=== PATIENT | female | born 1950 | race Caucasian/White ===

== ENCOUNTER → 2016-05-26 | Outpatient (CLI) | payer OTHER ==
[2016-05-26 12:48] LABS: HEMOGLOBIN 14.3 g/dL (12.0-16.0); MEAN CORPUSCULAR HEMOGLOBIN 32.3 PG (27-31); MEAN PLATELET VOLUME 9.6 FL (7.4-12.2); RED BLOOD COUNT 4.43 10^6/uL (4.20-5.40)
[2016-05-26 12:50] LABS: ASPARTATE AMINO TRANSFERASE 33 IU/L (8-39); BILIRUBIN,TOTAL 0.5 mg/dL (0.3-1.2); BLOOD UREA NITROGEN 20 mg/dL (7-22); BUN/CREATININE RATIO 33.33 (6-20); CALCIUM 10.3 mg/dL (8.7-10.7); CHLORIDE 100 meq/L (98-112); CREATININE 0.6 mg/dL (0.50-1.20); EST GLOMERULAR FILTRATION > 60 (>60 ml/min/1.73m(2)); GLUCOSE 107 mg/dL (78-110); HDL CHOLESTEROL 68 mg/dL (40-150); HEMATOCRIT 41.9 % (37.0-47.0); MEAN CORPUSCULAR HGB CONC 34.1 g/dL (33-37); POTASSIUM 4.2 meq/L (3.8-5.2); SODIUM 138 meq/L (135-145); TOTAL PROTEIN 7.7 g/dL (6.1-8.0); TRIGLYCERIDES 230 mg/dL (44-200); WHITE BLOOD COUNT 5.56 10^3/uL (4.8-10.8)
[2016-05-26 13:53] LABS: HEMOGLOBIN A1C 6.05 % (4.2-6.0); MEAN BLOOD GLUCOSE (CALC) 115.465 mg/dL
== END ==
LOC: LAB 09:24
PROVIDERS: ATTEND Physician Assistant
DX: I10 Essential (primary) hypertension (principal); E66.9 Obesity, unspecified; K76.0 Fatty (change of) liver, not elsewhere classified; E78.5 Hyperlipidemia, unspecified; E03.9 Hypothyroidism, unspecified; R73.01 Impaired fasting glucose
CPT/HCPCS: 80053; 80061; 82306; 83036; 84443; 85027

== ENCOUNTER → 2016-07-27 | Outpatient (CLI) | payer OTHER ==
[2016-07-27 17:37] LABS: BASOPHILS # (AUTO) 0.06 10*3/UL; BASOPHILS % (AUTO) 0.8 % (0-1); EOSINOPHILS # (AUTO) 0.16 10*3/UL; EOSINOPHILS % (AUTO) 2.1 % (0-8); HEMATOCRIT 43.2 % (37.0-47.0); HEMOGLOBIN 14.2 g/dL (12.0-16.0); LYMPHOCYTES # (AUTO) 2.88 10*3/uL; MEAN CORPUSCULAR HEMOGLOBIN 31.8 PG (27-31); MEAN CORPUSCULAR HGB CONC 32.9 g/dL (33-37); MEAN CORPUSCULAR VOLUME 96.6 FL (81-99); MEAN PLATELET VOLUME 9.7 FL (7.4-12.2); MONOCYTES # (AUTO) 0.82 10*3/UL (0.3-0.8); MONOCYTES % (AUTO) 10.7 % (5-15); NEUTROPHILS # (AUTO) 3.75 10*3/UL; NEUTROPHILS % (AUTO) 48.8 % (50-80); RED BLOOD COUNT 4.47 10^6/uL (4.20-5.40)
[2016-07-27 17:42] LABS: SERUM ALBUMIN 4.4 g/dL (3.5-4.8)
[2016-07-27 17:46] LABS: PLATELET MORPHOLOGY COMMENT NORMAL MORPHOLOGY (NORM); RBC MORPHOLOGY COMMENT NORMAL MORPHOLOGY (NORM); WBC MORPHOLOGY COMMENT NORMAL MORPHOLOGY (NORM)
[2016-07-27 18:12] LABS: BILIRUBIN,URINE NEGATIVE (NEG); CLARITY,URINE CLEAR (CLEAR); COLOR,URINE YELLOW; GLUCOSE, URINE (UA) NEGATIVE (NEG); NITRATE,URINE NEGATIVE (NEG); OCCULT BLOOD,URINE NEGATIVE (NEG); PROTEIN,URINE NEGATIVE (NEG); URINE SAMPLE TYPE CLEAN CATCH URINE; UROBILINOGEN,URINE 0.2 mg/dL (0.2); WBC,URINE 0-1
[2016-07-27 18:13] LABS: BACTERIA,URINE RARE; SQUAMOUS EPITHELIAL CELL,UR RARE
== END ==
LOC: LAB 11:08
DX: M17.12 Unilateral primary osteoarthritis, left knee (principal); Z01.818 Encounter for other preprocedural examination
CPT/HCPCS: 36415; 80053; 81001; 85025; 87641

== ENCOUNTER 2018-05-08 05:39 | Inpatient (IN) ==
[2018-05-08] MEDS ORDERED: Lactated Ringers 1,000 ML PRIMARY IV ONE ×3 (05:54→15:47)
[2018-05-08] MEDS ORDERED: ceFAZolin Inj 2gm (Premix) 2 GM/50 ML BAG IV ONE ×2 (05:54→06:00)
[2018-05-08] MEDS ORDERED: LIDOCAINE W/ SODIUM BICARB 0.5 ML SYR ONE (05:55)
[2018-05-08] MEDS ORDERED: Sodium Chloride 0.9% 250 ML ONE (05:55)
[2018-05-08] MEDS ORDERED: LIDOCAINE W/ SODIUM BICARB 0.5 ML SYR SUBD ONE (06:00)
[2018-05-08] MEDS ORDERED: Nasal Sanitizer POPSWAB ampule 3 AMP (Nozin) PREOP DOSE ENOS SCH (06:00)
[2018-05-08 06:12] LABS: BILIRUBIN,URINE NEGATIVE (NEG); CLARITY,URINE CLEAR (CLEAR); COLOR,URINE YELLOW; GLUCOSE, URINE (UA) NEGATIVE (NEG); OCCULT BLOOD,URINE NEGATIVE (NEG); PH,URINE 6.5 (5.0-8.5); PROTEIN,URINE NEGATIVE (NEG); UROBILINOGEN,URINE 0.2 mg/dL (0.2)
[2018-05-08 06:14] LABS: RBC,URINE 0 /hpf; SQUAMOUS EPITHELIAL CELL,UR FEW; URINE SAMPLE TYPE CLEAN CATCH URINE; WBC,URINE 0-2
[2018-05-08] MEDS ORDERED: IPRATROPIUM/ALBUTEROL SULFATE 3 ML NEB NEB ONE ×2 (06:39→06:54)
[2018-05-08] MEDS ORDERED: fentaNYL Inj 250 MCG/5 ML VIAL ONE (06:40)
[2018-05-08] MEDS ORDERED: MIDAZOLAM 5 MG/1 ML ONE (06:40)
[2018-05-08] MEDS ORDERED: ATROPINE SULFATE 0.4 MG/1 ML VIAL IVP PRN (06:41)
[2018-05-08] MEDS ORDERED: LIDOCAINE W/ SODIUM BICARB 0.5 ML SYR SUBD PRN (06:41)
[2018-05-08] MEDS ORDERED: fentaNYL Inj 100 MCG/2 ML VIAL IVP PRN (06:41)
[2018-05-08] MEDS ORDERED: ONDANSETRON 4 MG/2 ML VIAL IVP PRN ×2 (06:41→16:26)
[2018-05-08] MEDS ORDERED: Ondansetron ODT Tab 8 MG TAB PO PRN (06:41)
[2018-05-08] MEDS ORDERED: KETAMINE 100 MG/1 ML - 5 ML ONE ×2 (06:42→15:57)
[2018-05-08] MEDS ORDERED: Acetaminophen 1000mg Inj 1,000 MG/100 ML VIAL IV ONE (06:43)
--- NOTE | 2018-05-08 06:44 | CRNA.PROGR ---
Anesthesia Time - Procedure/Recovery Time Start Date: 05/08/18 End Date: 05/08/18 Anesthesia : Time In: 07:48 Anesthesia : Time Out: 15:19 Anesthesia : Total Time: 451 - Total Anesthesia Time Total Anesthesia Time (minutes): 451 - Other Weight: 104.326 kg Height: 5 ft Body Mass Index (BMI): 44.9 Physical Status: P2 Anesthesia Type: General Anesthesia : ET
--- NOTE | 2018-05-08 06:44 | CRNA.PROGR ---
Anesthesia Recovery Phase I - Post Anesthesia Evaluation Patient's Condition on Arrival in Phase I: Stable Patient's Condition on Arrival in Phase II: Stable (medicated for pain with Hydromorphone, Ketoralac, Ketamine. Subjectively she states pain is severe, yet appears to be able to rest.) Pain Level: 10
--- NOTE | 2018-05-08 06:44 | CRNA.PROGR ---
Post Anesthesia Phase II - Post Anesthesia Phase II Patient Stable and Discharged To: Med/Surg Care Assumed By Surgeon: Wu Bailey MD Temperature: 98.2 F Pulse Rate: 89 Respiratory Rate: 22 Pulse Ox: 93 Total Kimberly Score at Discharge: 9 Post Anesthesia Discharge Criteria Met: Yes Additional Details: Aggressive pain medication.
[2018-05-08] MEDS ORDERED: Lactated Ringers 1,000 ML PRIMARY IV SCH (06:45)
[2018-05-08] MEDS ORDERED: Sodium Chloride 0.9% vial 40 ML ONE (06:47)
[2018-05-08] MEDS ORDERED: BACITRACIN 50,000 UNIT VIAL IRRIG ONE (06:47)
[2018-05-08] MEDS ORDERED: REMIFENTANIL 1 MG/1 ML IV ONE ×2 (07:00→11:19)
[2018-05-08] MEDS ORDERED: REMIFENTANIL HCL 2 MG VIAL IV ONE ×2 (07:00→11:19)
[2018-05-08] MEDS: Lactated Ringers 1,000 ML PRIMARY IV ONE ×2 (07:04→15:40)
[2018-05-08] MEDS ORDERED: Gentamicin Inj 40 MG/ML VIAL ONE (07:08)
[2018-05-08] MEDS ORDERED: Vancomycin Inj 1gm vial ONE (07:08)
[2018-05-08] MEDS ORDERED: ROCURONIUM 10 MG/1 ML - 5 ML VIAL IVP ONE (07:10)
[2018-05-08] MEDS ORDERED: DEXAMETHASONE PF 10 MG/1 ML VIAL ONE (07:20)
[2018-05-08] MEDS ORDERED: BUPIVACAINE 0.25% W/ EPI - 10 ML VIAL ONE (08:29)
[2018-05-08] MEDS ORDERED: GLYCOPYRROLATE 0.2 MG/1 ML VIAL ONE (08:30)
[2018-05-08] MEDS ORDERED: Hetastarch 6% + NS 500 ML IV ONE (09:03)
[2018-05-08] MEDS ORDERED: BUPivacaine Liposome/PF (Exparel) Inj 20ml vial INFIL ONE ×2 (09:37→14:44)
[2018-05-08] MEDS ORDERED: PROPOFOL 10 MG/1 ML (200 MG/20 ML) VIAL IV ONE (11:31)
[2018-05-08] MEDS ORDERED: Propofol 1,000 MG/100 ML VIAL IV ONE ×2 (12:33→13:26)
[2018-05-08] MEDS ORDERED: Sodium Chloride 0.9% vial 10 ML ONE (12:58)
[2018-05-08] MEDS ORDERED: Lactated Ringers 2,000 ML PRIMARY IV ONE (13:12)
[2018-05-08] MEDS ORDERED: BUPivacaine Inj 0.25% PF - 10ml vial ONE (14:45)
[2018-05-08] MEDS: HYDROmorphone 2 MG/1 ML IVP PRN ×4 (15:28→15:43)
[2018-05-08] MEDS ORDERED: HYDROmorphone 2 MG/1 ML ONE ×2 (15:32→15:45)
[2018-05-08] MEDS ORDERED: KETOROLAC 30 MG/1 ML VIAL ONE (16:03)
[2018-05-08] MEDS ORDERED: Ondansetron ODT Tab 4 MG TAB PO PRN (16:26)
[2018-05-08] MEDS ORDERED: BISACODYL 5 MG TABLET PO PRN (16:26)
[2018-05-08] MEDS ORDERED: DOCUSATE 100 MG CAPSULE PO PRN (16:26)
[2018-05-08] MEDS ORDERED: HYDROcodone-APAP 7.5 MG-325 MG TABLET PO PRN (16:26)
[2018-05-08] MEDS ORDERED: Vancomycin-PHA to Dose IV SCH (16:26)
[2018-05-08] MEDS ORDERED: Prochlorperazine Edisylate Inj 10mg/2ml vial IVP PRN (16:26)
[2018-05-08] MEDS ORDERED: HYDROcodone-APAP 10 MG-325 MG TABLET PO PRN (16:26)
[2018-05-08] MEDS ORDERED: Fleet Enema 133ml RECTAL PRN (16:26)
[2018-05-08] MEDS ORDERED: oxyCODONE/APAP 7.5/325 Tab 1 TAB TAB PO PRN (16:26)
[2018-05-08] MEDS ORDERED: oxyCODONE/APAP 10/325 Tab 1 EACH TAB PO PRN (16:26)
[2018-05-08] MEDS ORDERED: MAGNESIUM CITRATE 296 ML SOLUTION PO PRN (16:26)
[2018-05-08] MEDS ORDERED: FLUTICASONE PROPIONATE SCH (16:26)
[2018-05-08] MEDS ORDERED: DIAZEPAM 5 MG TABLET PO PRN (16:26)
[2018-05-08] MEDS ORDERED: MAGNESIUM 400 MG/5 ML - 30 ML (MILK OF MAGNESIA) PO PRN (16:26)
[2018-05-08] MEDS ORDERED: oxyCODONE-ACETAMINOPHEN 5-325 TAB PO PRN (16:26)
[2018-05-08] MEDS ORDERED: PROMETHAZINE 25 MG/1 ML VIAL IM PRN (16:26)
[2018-05-08] MEDS: MORPHINE SULFATE 2 MG/1 ML IVP PRN ×2 (17:11→22:03)
--- NOTE | 2018-05-08 18:51 | CONSULT ---
Consult Note - Consult Consult Date: 05/08/18 Reason for Consult: Other Requesting Physician: Dr. Bailey Primary Care Provider: Yassine Jernigan DNP - History of Present Illness History of Present Illness: This is a 68 years old female with medical history significant for history of insulin resistant on metformin, hypothyroidism, GERD, history of irritable bowel syndrome and history of chronic back pain for which she came in to have surgery and was done by Dr. Bailey today. The patient was seen postoperatively for management of medical issues. The Patient herself is denying symptoms. Pain seemed to be controlled. No nausea, no shortness of breath, no chest pain. Her main complaint is dry mouth. She said she has problem with oral pain medication she would get nausea and vomiting. Past Medical History Medical History: 1. Hypothyroidism. 2. Obstructive sleep apnea on CPAP. 3. History of Insulin resistance on metformin. 4. Obesity. 5. GERD. 6. Hyperlipidemia. 7. Irritable bowel syndrome Surgical History: 1. History of back surgery. 2. History of carpal tunnel surgery. 3. History of total knee replacement. 4. History of gastric banding surgery. 5. History of hernia surgery Family History: Reviewed an Not Pertinent Past Social History: Does not smoke, occasionally and drink lives in [place] with her . Occasionally she said she was a walker. Tobacco Use: Former Smoker Do you dip or chew tobacco: No In the Past 12 Months, Have Used or Abuse Any of the Following Substance: None Alcohol Use: Occasionally Review of Systems - Review of Systems All Systems: Reviewed & No Additional Complaints Except as Stated Medication / Allergies Home Medications: Home Medications Medication Instructions Recorded Confirmed Type Psyllium Husk [Fiber] 0.52 gm PO QD cap 07/28/16 05/08/18 History Vitamin B Complex 1 ea PO QD cap 07/28/16 05/08/18 History conj estrogen-medroxyprogesterone 1 tab PO QDAY #28 tab 10/22/17 05/08/18 Rx 0.3 mg-1.5 mg tablet gcxixon-abftlerpdumgb-suviguwq 250 2 tab PO Q6H PRN 01/23/18 05/08/18 History mg-250 mg-65 mg tablet esomeprazole magnesium 40 mg 40 mg PO QDAY #90 cap 01/23/18 05/08/18 Rx capsule,delayed release Synthroid 150 mcg tablet 150 mcg PO QDAY #90 tab NS 03/04/18 05/08/18 Rx metformin 1,000 mg tablet 500 mg PO BID #90 tab 03/27/18 05/08/18 Rx fenofibrate micronized 134 mg 134 mg PO QDAY #90 cap 04/09/18 05/08/18 Rx capsule fluticasone 50 mcg/actuation nasal See Rx Instructions .ROUTE 05/01/18 05/08/18 Rx spray,suspension .COMPLEX #16 gram eluxadoline 100 mg tablet 100 mg PO BID #120 tab 05/06/18 05/08/18 Rx Tapentadol HCl [Nucynta] 50 mg PO Q3H PRN PRN #24 tab 05/09/18 Rx Allergies/Adverse Reactions: Allergies Allergy/AdvReac Type Severity Reaction Status Date / Time adhesive Allergy Severe RASH Verified 05/09/18 06:19 nabumetone Allergy Severe Itching/hiv Verified 05/09/18 06:19 es sulfasalazine Allergy Severe Anaphylaxis Verified 05/09/18 06:19 Exam - Vitals Vital Signs: Vital Signs Temperature 97.5 F Temperature Source Oral Pulse Rate 112 Respiratory Rate 12 Blood Pressure 162/93 Pulse Ox 91 Oxygen Flow Rate 4 Oxygen Delivery Method Nasal Cannula Height 5 ft Weight 230 lb - General General Appearance: No Acute Distress, Cooperative - Head Head Exam: Normal Inspection - ENT ENT Exam: POSITIVE: Normal Exam - Neck Neck Exam: Normal Inspection - Respiratory Respiratory Exam: POSITIVE: Clear to Auscultation - Bilaterally - Cardiovascular Cardiovascular Exam: POSITIVE: RRR - GI/Abdominal GI/Abdominal Exam: POSITIVE: Normal Bowel Sounds, Non Tender, Non Distended, Soft, No Organomegaly - Rectal Rectal Exam: POSITIVE: Deferred - External Exam: POSITIVE: Deferred - Extremities Extremities Exam: POSITIVE: Normal Inspection Additional Extremities Exam Details: SCD boots applied - Neurological Neurological Exam: POSITIVE: Alert, Oriented x 3, CN II-XII Intact, No Facial Droop, Speech Intact / Clear - Psychiatric Psychiatric Exam: POSITIVE: Normal Affect - Integumentary Integumentary Exam: POSITIVE: Normal Color Results - Labs CBC and BMP: 05/09/18 04:15 05/09/18 04:15 Assessment and Plan - Patient Problems (1) Back pain Current Visit: Yes Status: Acute Comment: Status post surgery management per by Dr. Bailey. He wrote for pain medication. She said she has side effect from the oral pain medication. I did write for Tylenol as needed for pain. Otherwise she has IV morphine. sHe said that would work for her. Code(s): M54.9 - Dorsalgia, unspecified (2) Irritable bowel syndrome with diarrhea Current Visit: No Status: Chronic Comment: Same med Code(s): K58.0 - Irritable bowel syndrome with diarrhea (3) Insulin resistance Current Visit: No Status: Chronic Comment: She is on metformin from the outpatient continue. Code(s): E88.81 - Metabolic syndrome (4) Hypothyroidism Current Visit: No Status: Chronic Comment: Same medication Qualifiers: Hypothyroidism type: acquired Qualified Code(s): E03.9 - Hypothyroidism, unspecified
[2018-05-08] MEDS: ceFAZolin Inj 1 GM in Sodium Chloride 0.9% 100 ML IV SCH (19:14)
[2018-05-08] MEDS: metFORMIN 500 MG TABLET PO SCH (19:59)
--- NOTE | 2018-05-08 20:08 | NEURO.PROG ---
Subjective Post Op Day: 0 Pain Management: IV Sotelo Catheter: Yes Diet: Regular Ambulating: Yes Additional Details: Awake and alert. Lying comfortably in floor bed. Back pain more controlled now then when seen in PACU. Continues to deny leg symptoms as she did in the PACU. Moving all extremities well. Good/full knee flexion/dorsiflexion/plantarflexion bilaterally. PLAN: 1.) Continue post-operative antibiotics. 2.) Continue post-operative pain control. 3.) Advance diet. 4.) Fit for brace. 5.) Mobilize. Objective : Data - Vital Signs Vital Signs and I&O: Vital Signs - Last Taken Temperature 97.5 F 05/08/18 17:00 Pulse Rate 112 H 05/08/18 16:02 Respiratory Rate 12 05/08/18 17:00 Blood Pressure 162/93 05/08/18 16:02 Pulse Ox 91 05/08/18 16:02 Intake and Output (24hr x 4 totals) 05/06/18 05/07/18 05/08/18 05/09/18 05:59 05:59 05:59 05:59 Intake Total 4100 / 4100 Output Total 568 / 568 Balance 3532 / 3532
[2018-05-08] MEDS ORDERED: ELUXADOLINE 100 MG PO SCH (21:00)
[2018-05-08] MEDS: ACETAMINOPHEN 325 MG TABLET PO PRN (22:04)
[2018-05-09] MEDS: MORPHINE SULFATE 2 MG/1 ML IVP PRN ×5 (01:38→17:32)
[2018-05-09] MEDS: ceFAZolin Inj 1 GM in Sodium Chloride 0.9% 100 ML IV SCH (04:04)
[2018-05-09] MEDS: ACETAMINOPHEN 325 MG TABLET PO PRN ×3 (04:24→20:56)
[2018-05-09] MEDS: LEVOTHYROXINE 75 MCG TABLET PO SCH (05:23)
[2018-05-09 05:54] LABS: BASOPHILS # (AUTO) 0.01 10*3/UL; BASOPHILS % (AUTO) 0.1 % (0-1); EOSINOPHILS # (AUTO) 0 10*3/UL; EOSINOPHILS % (AUTO) 0 % (0-8); Hematocrit [HCT] 35.3 % (37.0-47.0); LYMPHOCYTES # (AUTO) 1.33 10*3/uL; MEAN CORPUSCULAR HEMOGLOBIN 32.3 PG (27-31); MEAN CORPUSCULAR VOLUME 95.1 FL (81-99); MEAN PLATELET VOLUME 9.7 FL (7.4-12.2); MONOCYTES # (AUTO) 0.91 10*3/UL (0.3-0.8); MONOCYTES % (AUTO) 9.9 % (5-15); NEUTROPHILS # (AUTO) 6.95 10*3/UL; NEUTROPHILS % (AUTO) 75.4 % (50-80); RED BLOOD COUNT 3.71 10^6/uL (4.20-5.40)
[2018-05-09 05:59] LABS: PLATELET MORPHOLOGY COMMENT NORMAL MORPHOLOGY (NORM); RBC MORPHOLOGY COMMENT NORMAL MORPHOLOGY (NORM); WBC MORPHOLOGY COMMENT NORMAL MORPHOLOGY (NORM)
[2018-05-09 06:06] LABS: BLOOD UREA NITROGEN 14 mg/dL (7-22)
--- NOTE | 2018-05-09 06:28 | NEURO.PROG ---
Subjective Post Op Day: 1 Pain Management: PO Bird Catheter: Yes Flatus: Yes Diet: Regular Ambulating: No Additional Details: I made rounds with Dr. Bailey on [facility] this morning. She is awake and alert, with some complaints of back pain, but denies peripheral symptoms. Her knee flexion, dorsi and plantar flexion are strong. Her pain was managed with tylenol and IV morphine last night since she does not tolerate oxy or hydrocodone. We will work with getting her on an oral pain medication she can tolerate. Her incision is dry and intact and her drain output totals 100ml since surgery, with 40ml of that for the last 12 hours. Plan for today is to mobilize her today and to discontinue her wound drain and her bird catheter. Objective : Data - Labs CBC and BMP: 05/09/18 04:15 05/09/18 04:15 - Vital Signs Vital Signs and I&O: Vital Signs - Last Taken Temperature 97.2 F 05/09/18 04:15 Pulse Rate 116 H 05/09/18 04:15 Respiratory Rate 20 05/09/18 04:15 Blood Pressure 141/77 05/09/18 04:15 Pulse Ox 95 05/09/18 04:15 Intake and Output (24hr x 4 totals) 05/07/18 05/08/18 05/09/18 05/10/18 05:59 05:59 05:59 05:59 Intake Total 6754 / 6754 Output Total 2108 / 2108 Balance 4646 / 4646
[2018-05-09] MEDS ORDERED: PANTOPRAZOLE 40 MG TABLET PO SCH (07:00)
[2018-05-09] MEDS: Esomeprazole DR 20mg Capsule PO SCH (07:33)
[2018-05-09] MEDS ORDERED: TAPENTADOL 50 MG PO PRN (08:47)
[2018-05-09] MEDS ORDERED: ESTROGEN CON PO SCH ×2 (09:00→19:13)
[2018-05-09] MEDS ORDERED: M PROGEST ACET PO SCH ×2 (09:00→19:13)
[2018-05-09] MEDS: FENOFIBRATE 145 MG TABLET PO SCH (09:58)
[2018-05-09] MEDS: metFORMIN 500 MG TABLET PO SCH ×2 (09:58→20:09)
--- NOTE | 2018-05-09 11:17 | PTI REPORT ---
Thank you for the referral of Heidi Rocha. She was seen on 05/09/18 for an inpatient evaluation status post lumbar fusion. SUBJECTIVE: The patient is a 68-year-old female who underwent a lumbar fusion yesterday. The patient is complaining of a pain level of 8/10 on the verbal analog scale (0=no pain, 10=worst pain) upon the therapist's arrival. The patient did receive intravenous Morphine just prior to physical therapy. The patient reports that last year she underwent a surgery for a nerve release for her back and did not have much change in her back pain as she states she has had a chronic history of back pain, but denies any other back surgeries besides her nerve release. The patient states that she lives in [place] with her . She states that she has three stairs into her home and everything she needs to access in her home is on one level. The patient states that she has been having left lower extremity weakness prior to her surgery. She states that she has some numbness in her heel and also underwent a left total knee replacement a couple of years ago. The patient states that prior to her back surgery she was not having any numbness or tingling into her lower extremities. The patient states a history of three previous knee surgeries including a right and left total knee replacements and a history of multiple shoulder surgeries. The patient states that she uses a single point cane at times for ambulation as needed and denies any falls over the past three months. The patient states that she does have a bariatric walker that her will be bringing in later for her to use as she feels that she will be more safe with this and this is something that she used after her total knee replacements. The patient states that she was doing fairly well with her ADLs prior to surgery but was needing some assistance with some of her dressing and also with meals. PAST MEDICAL HISTORY: Past medical history can be found in the patient's medical record. OBJECTIVE FINDINGS: General observations: The patient was alert and oriented to setting upon PT arrival. The patient was sitting up in chair and did have her back brace in place. We reviewed lumbar precautions including no bending/lifting/twisting. The therapist demonstrated to patient how to properly log roll into and out of bed. We discussed being up and walking for gentle nerve glides along with wearing brace whenever the patient is up and moving. Pain: The patient reported a pain level of 8/10 on the verbal analog scale (0=no pain, 10=worst pain). Transfers: The patient was able to perform a sit to stand transfer with min assist x1. The patient demonstrated fair initial standing balance. The patient was able to perform a stand to seated transfer with stand by assist x1 for safety. Ambulation: The patient utilized walker and contact guard assist x1 to ambulate from her chair to the bed, approximately 10 feet. Once we were standing in front of the bed, the patient was able to side step 5 feet to move up toward the head of the bed. Bed mobility: The patient required mod assist x1 in order to properly log roll into bed in order to help lift up her lower extremities. The patient does state that at home she has a taller bed. We will need to figure out a way for her to get in and out of her bed at home safely. ASSESSMENT: The patient has fair rehab potential secondary to her age and multiple prior histories along with her current pain level. Problem List: Patient is status post lumbar fusion Back pain Difficulties with transfers and ambulation Decreased functional mobility Short-Term Goals: To be met by discharge from inpatient: Patient will be familiar with and able to verbalize lumbar precautions. Patient will be able to perform a log roll into and out of bed with modified independence. Patient will be able to don and doff her brace with modified independence. Patient will be able to ambulate at least 100 feet with walker safely and independently. Patient will be able to ascend and descend at least three stairs with walker safely and independently. Long-Term Goals: To be met following discharge from inpatient: Patient may be seen by outpatient physical therapy if deemed necessary by surgeon. TREATMENT PLAN: Patient will be seen B.I.D during the week and one time per day over the weekend as an inpatient to address the above goals and objectives. INITIAL TREATMENT: Treatment today consisted of the initial evaluation. Following treatment the patient was left in bed with bed alarm on and call light within reach. [facility] CENTERAbelino
--- NOTE | 2018-05-09 11:37 | OTI REPORT ---
Thank you for the referral of Heidi Rocha. She was seen on 05/09/18 for an occupational therapy inpatient evaluation status post lumbar fusion. SUBJECTIVE: The patient is a 68-year-old female from [place], [place] who had a lumbar fusion on 05/08/2018. The patient reports that at prior level of function she was having a lot of back pain and was not able to exercise since October of last year. She did not use an assistive device to ambulate around her home. The patient reports minimal leg pain and she does not report any numbness or tingling at prior level of function or post op. The patient does report that she has had bilateral total knee arthroplasties, with the last one being on the left side. She also has left sided heel numbness. At prior level of function, the patient was independent with ADLs; however, on occasion she did need assistance to put on her socks and to don her bra due to back pain. Other than that, she was independent with ADLs including showering, donning pants, and walking. She did require some assistance with cooking tasks at home. The patient does live with her spouse. The patient reports she has three stairs to the entrance of her home with a hand rail on one side. Her bathroom set up includes a tub/shower combo with a grab bar. She does not have a shower chair in there at this time. The patient has a history of other orthopedic issues to include bilateral total knees and four shoulder surgeries. This is her first lumbar fusion; however, she did have a nerve release earlier last year in 2018. Currently the patient reports a pain level of 8/10 on the verbal analog scale (0=no pain, 10=worst pain) sitting upright in the recliner chair. Nursing did give patient Morphine related to the pain. PAST MEDICAL HISTORY: Past medical history can be found in the patient's medical record. OBJECTIVE FINDINGS: General observations: The patient was sitting upright in chair with her back brace in place upon the therapist's arrival. Her feet were slightly elevated. The patient was educated in precautions to include no bending/lifting/twisting and use of the back brace. Activities of daily living: The patient was briefly educated on adaptive equipment including a long handled bath sponge, a flatwork feeder, and a sock aide to assist with dressing tasks once the patient is feeling better. Upper extremity and lower extremity dressing was not completed at this time due to the patient's high pain level. Pain: The patient reported a pain level of 8/10 on the verbal analog scale (0=no pain, 10=worst pain). She did report that she wanted to get back into bed. Transfers: The patient demonstrated the ability to stand from her recliner chair with minimal assistance. She did use a standard walker at the time of the evaluation; however, her is bringing one from home that she feels is safer and sturdier. Ambulation: The patient demonstrated the ability to ambulate 5 feet to edge of bed. Bed mobility: The patient sat edge of bed and required moderate assistance to perform log rolling techniques to get into bed. The patient was able to reposition self slightly in bed without assistance. ASSESSMENT: Rehab potential is fair to good. Problem List: Decreased ability to complete lower extremity dressing Decreased ability to complete functional transfers/log rolling Decreased safety awareness Decreased standing activity tolerance/balance Short-Term Goals: To be met by discharge from inpatient: Patient will demonstrate the ability to complete lower extremity dressing techniques while following back precautions with the use of a back brace and assistive devices as needed with modified independence to include donning/doffing pants, underwear, and socks. Patient will demonstrate the ability to complete upper extremity dressing independently to include donning/doffing of back brace. Patient will demonstrate the ability to complete functional transfers from the toilet and chair with contact guard assist only for safety without verbal cues. Patient will demonstrate the ability to stand for 5-8 minutes with no losses of balance to complete standing grooming tasks prior to discharge to home. Long-Term Goals: To be met following discharge from inpatient: Patient will return home to [place] and may be seen by outpatient physical therapy to continue with her recovery process. TREATMENT PLAN: Patient will be seen B.I.D during the week and one time per day over the weekend as an inpatient to address the above goals and objectives. INITIAL TREATMENT: Treatment today consisted of the initial evaluation only. Following treatment the patient was left in bed with call light within place and bed alarm set. She did report that she is hoping to get up and start walking a little bit more later this afternoon and may feel like getting dressed later. RIO
--- NOTE | 2018-05-09 11:38 | PDOC(PROG) ---
Date of Service: 05/09/18 Time of Service: 11:30 Interval History: Subjective Patient complain pain from back pain but otherwise denying other symptoms. No nausea. No shortness of breath. Objective : Data - Labs CBC and BMP: 05/09/18 04:15 05/09/18 04:15 Objective : Exam - General General Appearance: No Acute Distress, Cooperative, Morbidly Obese - Head Head Exam: Normal Inspection - Eye Eye Exam: Normal Appearance - ENT ENT Exam: Normal Exam - Neck Neck Exam: Normal Inspection - Respiratory Respiratory Exam: Clear to Auscultation - Bilaterally - Cardiovascular Cardiovascular Exam: RRR - GI/Abdominal GI/Abdominal Exam: Normal Bowel Sounds, Non Tender, Non Distended, Soft, No Organomegaly - Rectal Rectal Exam: Deferred - External Exam: Deferred Exam: Deferred - Extremities Extremities Exam: Normal Inspection - Back Additional Back Exam Details: She is wearing a brace. - Neurological Neurological Exam: Alert, Oriented x 3, CN II-XII Intact, No Facial Droop, Speech Intact / Clear, Moves All Extremities Equally - Psychiatric Psychiatric Exam: Normal Affect Assessment and Plan - Patient Problems (1) Back pain Current Visit: Yes Status: Acute Comment: She status post surgery day 1. For oral pain medication they wrote for Nucynta and she said she usually do okay with it but takes the edge of the pain only. Continue Tylenol she has IV morphine as needed. IV fluid was DC'd, Sotelo was taking out. Code(s): M54.9 - Dorsalgia, unspecified (2) Insulin resistance Current Visit: No Status: Chronic Comment: Same med Code(s): E88.81 - Metabolic syndrome (3) Hypothyroidism Current Visit: No Status: Chronic Comment: Same meds Qualifiers: Hypothyroidism type: acquired Qualified Code(s): E03.9 - Hypothyroidism, unspecified
--- NOTE | 2018-05-09 15:59 | PT.PROG ---
Progress Note Progress Note: S. Patient stated that she is in a lot of pain this afternoon and she is very tired. O. Patient ambulated 50 feet in the rodriguez and back to her room where she was left in bed with alarm and call light. A. Patient tolerated ambulation fair, she required mod assist with ambulation. She would continue to benefit from skilled therapy to increase strength and mobility at this time. P. Continue POC.
[2018-05-09] MEDS: TAPENTADOL 50 MG PO PRN ×3 (16:19→23:11)
--- NOTE | 2018-05-09 16:27 | OT.PROG ---
Progress Note Progress Note: Occupational Therapy S: Pt. reports that she is in 6/10 pain and is very tired this afternoon. She did agreed to get up with therapies. O: Pt. was lying supine in bed upon arrival. Pt. demonstrated the ability to move from supine to side lying independently and perform a log rolling technique with moderate assistance and moderate verbal cueing. Pt. was able to maintain sitting upright EOB X 5 minutes. Pt. then attempted log rolling back into bed with max verbal cues. Pt. required max A to lift legs and she did not maintain a side lying position during log rolling. Following session pt. was left in bed with call light and alarms in place. A: Pt. struggled with bed mobility tasks today as well as following log rolling precautions. Pt. continues to benefit from skilled therapy to increase safety, strength, functional mobility, and ADL performance. P: Continue POC. DELILAH [place]
--- NOTE | 2018-05-09 21:52 | EKG ---
[address] [address] Measurements Intervals [facility] Rate: 118 P: 73 MD: 155 QRS: 62 QRSD: 103 T: 43 QT: 340 QTc: 410 Interpretive Statements SINUS TACHYCARDIA ABNORMAL RHYTHM ECG No previous ECG available for comparison Electronically Signed On 05-10-18 11:23:43 MST by Gilberto Muir MD [email or web address]
--- NOTE | 2018-05-09 21:56 | DI ---
EXAM: XR Chest, 1 View CLINICAL HISTORY: ITS.REASON hypoxia Physician Notes: Tech Comments: TECHNIQUE: Frontal view of the chest. COMPARISON: No relevant prior studies available. FINDINGS: Lungs: Mild interstitial thickening. Mild silhouetting of the medial right hemidiaphragm suggesting lower lobe airspace disease Pleural space: No significant pleural effusion. No visualized pneumothorax. Heart: Cardiac silhouette size is upper limits normal. Mediastinum: Mild atherosclerosis in the aortic arch.. Bones/joints: Surgical changes to the humeral heads. Vasculature: Mild pulmonary venous prominence. IMPRESSION: 1. Cardiomegaly with mild pulmonary venous prominence and interstitial thickening. Component of edema or other infiltrate not excluded. 2. Mild silhouetting of the heel right hemidiaphragm suggests air space disease versus atelectasis in the right lower lobe.
[2018-05-09] MEDS ORDERED: Sodium Chloride 0.9% 250 ML IV ONE (22:01)
[2018-05-09] MEDS: Ertapenem Inj 1 GM in Sodium Chloride 0.9% 100 ML IV SCH (23:11)
[2018-05-09 23:24] LABS: BILIRUBIN,URINE NEGATIVE (NEG); CLARITY,URINE CLEAR (CLEAR); COLOR,URINE YELLOW (Y); GLUCOSE, URINE (UA) NEGATIVE (NEG); OCCULT BLOOD,URINE Trace-intact (NEG); PH,URINE 5.5 (5.0-8.5); PROTEIN,URINE NEGATIVE (NEG); UROBILINOGEN,URINE 0.2 EU/dL (0.2)
[2018-05-09 23:27] LABS: SQUAMOUS EPITHELIAL CELL,UR FEW; URINE SAMPLE TYPE CLEAN CATCH URINE
[2018-05-10] MEDS: TAPENTADOL 50 MG PO PRN ×5 (02:41→20:24)
[2018-05-10] MEDS: LEVOTHYROXINE 75 MCG TABLET PO SCH (05:17)
[2018-05-10 06:00] LABS: BASOPHILS # (AUTO) 0.04 10*3/UL; BASOPHILS % (AUTO) 0.4 % (0-1); EOSINOPHILS # (AUTO) 0.27 10*3/UL; Hemoglobin [HGB] 11.3 g/dL (12.0-16.0); LYMPHOCYTES # (AUTO) 1.87 10*3/uL; MEAN CORPUSCULAR HEMOGLOBIN 32.2 PG (27-31); MEAN CORPUSCULAR HGB CONC 33.2 g/dL (33-37); MEAN CORPUSCULAR VOLUME 96.9 FL (81-99); MEAN PLATELET VOLUME 9.1 FL (7.4-12.2); MONOCYTES # (AUTO) 0.78 10*3/UL (0.3-0.8); MONOCYTES % (AUTO) 8.7 % (5-15); NEUTROPHILS # (AUTO) 5.96 10*3/UL; NEUTROPHILS % (AUTO) 66.8 % (50-80); RED BLOOD COUNT 3.51 10^6/uL (4.20-5.40)
[2018-05-10 06:06] LABS: PLATELET MORPHOLOGY COMMENT NORMAL MORPHOLOGY (NORM); RBC MORPHOLOGY COMMENT NORMAL MORPHOLOGY (NORM); WBC MORPHOLOGY COMMENT NORMAL MORPHOLOGY (NORM)
[2018-05-10 06:46] LABS: BLOOD UREA NITROGEN 9 mg/dL (7-22)
--- NOTE | 2018-05-10 06:58 | NEURO.PROG ---
Subjective Post Op Day: 2 Pain Management: PO (Nucenta) Sotelo Catheter: No Flatus: Yes Diet: Regular Ambulating: Yes Additional Details: Awake and alert. No complaints. Feeling fine. Comfortable sitting in bedside chair. Passing some gas, no bowel movement yet. Post-operative pain well controlled on Nucynta. Temp up to 100.8 and tachycardic last evening. EKG - sinus rythym. UA - negative. CXR - atelectasis right lower lobe. PLAN: 1.) Continue incentive spirometer. 2.) Continue to mobilize. 3.) Continue post-operative pain control. Objective : Data - Labs CBC and BMP: 05/10/18 05:55 05/10/18 05:55 - Vital Signs Vital Signs and I&O: Vital Signs - Last Taken Temperature 97.9 F 05/10/18 06:42 Pulse Rate 114 H 05/10/18 06:42 Respiratory Rate 20 05/10/18 06:42 Blood Pressure 140/82 05/10/18 06:42 Pulse Ox 93 05/10/18 06:42 Intake and Output (24hr x 4 totals) 05/08/18 05/09/18 05/10/18 05/11/18 05:59 05:59 05:59 05:59 Intake Total 6754 / 6754 1410 / 1410 Output Total 2108 / 2108 1650 / 1650 Balance 4646 / 4646 -240 / -240
[2018-05-10] MEDS: Esomeprazole DR 20mg Capsule PO SCH (07:09)
[2018-05-10] MEDS: ACETAMINOPHEN 325 MG TABLET PO PRN ×2 (07:34→15:34)
--- NOTE | 2018-05-10 08:12 | PDOC(PROG) ---
Date of Service: 05/10/18 Time of Service: 08:30 Interval History: Subjective Patient feels better than last night. Her temperature is down. Still tachycardic but less than last night. Complain from pain in her back. No chest pain, no cough no shortness of breath. Objective : Data - Labs CBC and BMP: 05/10/18 05:55 05/10/18 05:55 Objective : Exam - General General Appearance: No Acute Distress, Cooperative, Morbidly Obese - Head Head Exam: Normal Inspection - Eye Eye Exam: Normal Appearance - ENT ENT Exam: Normal Exam - Neck Neck Exam: Normal Inspection - Respiratory Respiratory Exam: Clear to Auscultation - Bilaterally - Cardiovascular Cardiovascular Exam: RRR - GI/Abdominal GI/Abdominal Exam: Normal Bowel Sounds, Non Tender, Non Distended, Soft - Rectal Rectal Exam: Deferred - External Exam: Deferred - Extremities Extremities Exam: Normal Inspection Additional Extremities Exam Details: SCD boots applied - Back Additional Back Exam Details: She is wearing a brace today. - Neurological Neurological Exam: Alert, Oriented x 3, CN II-XII Intact, No Facial Droop, Speech Intact / Clear - Psychiatric Psychiatric Exam: Normal Affect Assessment and Plan - Patient Problems (1) Back pain Current Visit: Yes Status: Acute Comment: Status post surgery day 2. Continue PT and OT. Continue current pain medication she is on Neucynta Code(s): M54.9 - Dorsalgia, unspecified (2) Insulin resistance Current Visit: No Status: Chronic Comment: Continue metformin Code(s): E88.81 - Metabolic syndrome (3) Hypothyroidism Current Visit: No Status: Chronic Comment: Continue same med Qualifiers: Hypothyroidism type: acquired Qualified Code(s): E03.9 - Hypothyroidism, unspecified (4) Postoperative fever Current Visit: Yes Status: Acute Comment: Probably from atelectasis. She is using the incentive spirometry this morning. I did ask her to use it more often today. We did give her Invanz, blood culture remain negative we'll probably DC it. Code(s): R50.82 - Postprocedural fever
[2018-05-10] MEDS: metFORMIN 500 MG TABLET PO SCH ×2 (09:41→20:24)
[2018-05-10] MEDS: FENOFIBRATE 145 MG TABLET PO SCH (09:41)
--- NOTE | 2018-05-10 11:39 | PT.PROG ---
Progress Note Progress Note: S. Patient stated that she is feeling better than yesterday. O. Patient performed sit to stand transfer and ambulated 130 feet in the rodriguez, she returned to her room where she was left in her chair with alarm and call light. A. Patient tolerated ambulation well, she continues to have some pain and requires mod assist with transfers however was able to ambulate with min assist. Patient would continue to benefit from skilled therapy to increase strength, mobility and endurance. Patient will perform stair training before she leaves. P. Continue POC.
--- NOTE | 2018-05-10 13:31 | CRNA.PROGR ---
Anesthesia Note - Progress Notes Anesthesia Progress Note: Up in chair. She states she's pleased with her status. No reaction to tape on her face r/t adhesive. States no sore throat afterwards. Denies nausea. Pain is controlled. States home in day or two. No apparent anesthetic difficulties.
--- NOTE | 2018-05-10 15:41 | PT.PROG ---
Progress Note Progress Note: S. Patient stated that she is tired this afternoon, however agreed to go for a walk. O. Patient ambulated 170 feet around the nurses station, she returned to her room where she performed log roll to get into bed and was left with alarm and call light. A. Patient tolerated ambulation well, she continues to require mod assist with bed mobility. She was able to ambulate with no complaints of pain or problems however will perform stair training tomorrow morning. P. Continue POC.
--- NOTE | 2018-05-10 16:00 | OT.PROG ---
Progress Note Progress Note: S: pt stated she was doing better and feels stronger after walking down the hallway. O: pt was seen in her room after completing PT. She was educated on sock aid and plug making operator and then demonstrated donning/doffing of socks with mod Ind as it only took her longer to complete. She then completed toilet transfer after completing sit to stand with CGA for safety. She was going to call for nursing after completing toileting. A: pt completed use of A.E well today and feel confident she can completed this task in future with equipment if necessary. P: continue per POC.
[2018-05-10] MEDS: Ertapenem Inj 1 GM in Sodium Chloride 0.9% 100 ML IV SCH (22:32)
[2018-05-11] MEDS: TAPENTADOL 50 MG PO PRN ×3 (00:12→08:44)
[2018-05-11] MEDS: LEVOTHYROXINE 75 MCG TABLET PO SCH (04:29)
[2018-05-11] MEDS: Esomeprazole DR 20mg Capsule PO SCH (06:27)
[2018-05-11] MEDS: ACETAMINOPHEN 325 MG TABLET PO PRN (06:27)
--- NOTE | 2018-05-11 07:54 | NEURO.PROG ---
Subjective Post Op Day: 3 Pain Management: PO Sotelo Catheter: No Flatus: Yes Diet: Regular Ambulating: Yes Additional Details: Ms Rocha is up in a chair, alert, with complaint only of low back pain, which is controlled with Nucynta and Tylenol. She denies peripheral symptoms of numbness or tingling. She has good strength with knee raise, dorsi and plantar flexion. She has good bowel sounds and flatus and had a bowel movement yestarday. Her incision has areas of serosanguinous drainage thoughout the length of it. There is no erythema. She was given wound care instructions including daily dressing change with tejinder wipes and mepilex. Her , who will be her eyes regarding her incision, will also be given instructions regarding her wound care. She has ambulated with physical therapy and does feel steady when up. She will complete milestones with them today prior to discharge. She was given instructions regarding her back brace when up for the day. She was also given instructions for the need to stay mobile at home and to use her incentive spirometer regularly in view of her elevated temp two days ago most likely associated with atelectasis on CXR. She has been given a post operative appointment to see Dr. Bailey on May 24 in the [place] office. From a neuro standpoint she is ready for discharge. Will leave discharge plan for Dr. Diaz. Objective : Data - Labs CBC and BMP: 05/10/18 05:55 05/10/18 05:55 - Vital Signs Vital Signs and I&O: Vital Signs - Last Taken Temperature 99.1 F 05/11/18 04:14 Pulse Rate 98 05/11/18 07:00 Respiratory Rate 20 05/11/18 04:14 Blood Pressure 140/78 05/11/18 04:14 Pulse Ox 94 05/11/18 04:18 Intake and Output (24hr x 4 totals) 05/09/18 05/10/18 05/11/18 05/12/18 05:59 05:59 05:59 05:59 Intake Total 6754 / 6754 1410 / 1410 1691 / 1691 Output Total 2108 / 2108 1650 / 1650 1775 / 1775 Balance 4646 / 4646 -240 / -240 -84 / -84
--- NOTE | 2018-05-11 08:45 | PDOC(PROG) ---
Date of Service: 05/11/18 Time of Service: 08:45 Interval History: Subjective Patient feels better. Denying complaint. Back pain seemed to be controlled with current pain medication. She is planning on cutting on the frequency of the pain medication. She is using her incentive spirometry. No cough or karmen rtness of breath. fever resolved tachycardia improved. She is on RA with sat 96%. Objective : Data - Labs CBC and BMP: 05/10/18 05:55 05/10/18 05:55 Objective : Exam - General General Appearance: No Acute Distress, Cooperative - Head Head Exam: Normal Inspection - Eye Eye Exam: Normal Appearance - ENT ENT Exam: Normal Exam - Neck Neck Exam: Normal Inspection - Respiratory Respiratory Exam: Clear to Auscultation - Bilaterally - Cardiovascular Cardiovascular Exam: RRR - GI/Abdominal GI/Abdominal Exam: Normal Bowel Sounds, Non Tender, Non Distended, Soft, No Organomegaly - Rectal Rectal Exam: Deferred - External Exam: Deferred - Extremities Extremities Exam: Normal Inspection - Back Back Exam: Normal Inspection - Neurological Neurological Exam: Alert, Oriented x 3, CN II-XII Intact, No Facial Droop, Speech Intact / Clear, Moves All Extremities Equally - Psychiatric Psychiatric Exam: Normal Affect - Integumentary Integumentary Exam: Normal Color Assessment and Plan - Patient Problems (1) Back pain Status: Acute Comment: Status post surgery. Continue PT and OT. She'll have another assessment by PT today I think if they clear her she can be discharged. Code(s): M54.9 - Dorsalgia, unspecified (2) Insulin resistance Status: Chronic Comment: Same med Code(s): E88.81 - Metabolic syndrome (3) Hypothyroidism Status: Chronic Comment: Same med Qualifiers: Hypothyroidism type: acquired Qualified Code(s): E03.9 - Hypothyroidism, unspecified (4) Postoperative fever Status: Acute Comment: Seems to be mostly resolved. I think it is secondary to atelectasis. However I did start her antibiotic in case there is a beginning of pneumonia. I may discharge her just on a few days of antibiotic to finish the course blood culture remained negative. Code(s): R50.82 - Postprocedural fever
[2018-05-11] MEDS: FENOFIBRATE 145 MG TABLET PO SCH (09:26)
[2018-05-11] MEDS: metFORMIN 500 MG TABLET PO SCH (09:26)
[2018-05-11 09:33] VITALS: BP 140/75; RESP 16; TEMP 98.9; O2SAT 97
--- NOTE | 2018-05-11 20:57 | DCSUMMARY ---
Hospitalization Summary Admit Date: 05/08/2018 Discharge Date: 05/11/18 Hospital Course: Discharge diagnosis 1. S/P back surgery 2. History of inslin resistance 3. Hypothyroidism 4. history of sleep apnea 5. Post-opertaive fever bishnuley secondary to atelectasis Hospital course This is a 68 years old female with medical history significant for history of insulin resistant on metformin, hypothyroidism, GERD, history of irritable bowel syndrome and history of chronic back pain for which she came in to have surgery and was done by Dr. Bailey. The patient was seen postoperatively for management of medical issues. The Patient herself was denying symptoms. She had a history of intolerance to oral pain medication so she was getting IV painand tylenol the only other pain med that she tolerate in the past was Nucynta, so this obtained for her and she started getting it here. Her psotopertaive cousre was complicated by fever which was likely secondary to atelectasis but we did start her on antibitics in case it was early penumonia. This resloved and on the day of discharged she felt better exam was unremarkable she was cleared for discharge from surgery and physical theapy so she was discharged home to F/U with surgery and PCP Discharge instructions Diet regular activity as tolertaed Medication Current Medication(s) Medication Instructions Recorded Confirmed Type Psyllium Husk [Fiber] 0.52 gm PO QD cap 07/28/16 05/08/18 History Vitamin B Complex 1 ea PO QD cap 07/28/16 05/08/18 History conj estrogen-medroxyprogesterone 1 tab PO QDAY #28 tab 10/22/17 05/08/18 Rx 0.3 mg-1.5 mg tablet vmqziqt-osrddniopimmk-zaudftvr 250 2 tab PO Q6H PRN 01/23/18 05/08/18 History mg-250 mg-65 mg tablet esomeprazole magnesium 40 mg 40 mg PO QDAY #90 cap 01/23/18 05/08/18 Rx capsule,delayed release Synthroid 150 mcg tablet 150 mcg PO QDAY #90 tab NS 03/04/18 05/08/18 Rx metformin 1,000 mg tablet 500 mg PO BID #90 tab 03/27/18 05/08/18 Rx fenofibrate micronized 134 mg 134 mg PO QDAY #90 cap 04/09/18 05/08/18 Rx capsule fluticasone 50 mcg/actuation nasal See Rx Instructions .ROUTE 05/01/18 05/08/18 Rx spray,suspension .COMPLEX #16 gram eluxadoline 100 mg tablet 100 mg PO BID #120 tab 05/06/18 05/08/18 Rx Tapentadol HCl [Nucynta] 50 mg PO Q3H PRN PRN #24 tab 05/09/18 Rx Tapentadol HCl [Nucynta] 50 mg PO Q3H PRN #56 tab 05/10/18 Rx Cefdinir 300 mg PO BID #6 cap 05/11/18 Rx Condition at discharge was stable for discharge F/U with Surgery and PCP Exam - Vitals Vital Signs: Vital Signs Temperature 98.9 F Temperature Source Oral Pulse Rate [Pulse Oximeter] 98 Pulse Rate [Apical] 118 Pulse Rate 112 Respiratory Rate 16 Blood Pressure [Right Radial 140/75 Artery] Blood Pressure [Left Radial 138/68 Artery] Blood Pressure 162/93 Pulse Ox 97 Oxygen Flow Rate 2 Oxygen Delivery Method Nasal Cannula Height 5 ft Weight 254 lb 12.8 oz Patient Problems - Patient Problem List (1) Back pain Status: Acute Code(s): M54.9 - Dorsalgia, unspecified Category: Medical (2) Insulin resistance Status: Chronic Code(s): E88.81 - Metabolic syndrome Category: Medical (3) Hypothyroidism Status: Chronic Qualifiers: Qualified Code(s): E03.9 - Hypothyroidism, unspecified Category: Medical (4) Postoperative fever Status: Acute Code(s): R50.82 - Postprocedural fever Category: Medical
--- NOTE | 2018-05-12 11:42 | GEN.OPNOTE ---
Operative Note Surgery Date: 05/08/18 Preoperative Diagnosis: 1. Chronic low back pain. 2. Chronic left lumbar radiculopathy. 3. Lumbar degenerative disc disease, most advanced L2-3 and L4- 5. 4. Advanced facet arthropathy and hypertrophy, L4-5 and L5-S1. 5. Mild retrolisthesis L2 on L3 and L4 on L5, mild to moderate anterolisthesis L5 on S1 partially reducing in extension. 6. Mild degenerative levoscoliosis of the lumbar spine. 7. Mild to moderate lumbar stenosis L3-4. 8. Left L4-5 lateral recess stenosis and neuroforaminal stenosis. Postoperative Diagnosis: 1. Chronic low back pain. 2. Chronic left lumbar radiculopathy. 3. Lumbar degenerative disc disease, most advanced L2-3 and L4- 5. 4. Advanced facet arthropathy and hypertrophy, L4-5 and L5-S1. 5. Mild retrolisthesis L2 on L3 and L4 on L5, mild to moderate anterolisthesis L5 on S1 partially reducing in extension. 6. Mild degenerative levoscoliosis of the lumbar spine. 7. Mild to moderate lumbar stenosis L3-4. 8. Left L4-5 lateral recess stenosis and neuroforaminal stenosis. 9. Left L4/5 pars defect. 10.) Left L4-5 partially calcified herniated nucleus propulsis. Procedure: 1.) Redo left L4-5 hemilaminotomy/medial facetectomy/foraminotomy. (CPT code: 99644). 2.) Arthrodesis, combined posterolateral with tranforaminal posterior interbody technique for interbody and posterolateral fusion, L4-5 level. (CPT code: 53563). 3.) Arthrodesis posterolateral L5-S1 bilaterally in preparation for posterolateral fusion, L5-S1 level. (CPT code: 85561). 4.) Insertion of a 10mm x 11mm x 28mm Tritanium PL titanium lumbar interbody cage filled in the center with DBM putty into the L4-5 interspace for fusion of the L4-5 interspace. (CPT code: 88356). 5.) Segmental posterolateral instrumented fusion L4-S1 using the [employer] Sheyla 3 pedicle screw and eladio system. (CPT code: 56614). 6.) Use of autograft harvested from the same incision, cleaned and morselized for interbody and posterolateral fusion. (CPT code: 76436). 7.) Use of 20 cc Concrete Vitoss Biomodal synthetic bone product (allograft), 20cc of Concrete BIO DBM Putty Plus cancellous (allograft), and 60 cc cancellous bone chips (allograft) for interbody and posterolateral fusion. (CPT code: 89654). 8.) Use of [employer] stereotactic computer assisted neuronavigation system for the cannulization of the L4, L5, and S1 pedicles bilaterally for the subsequent placement of the L4, L5, and S1 pedicle screws. (CPT code: 56719). 9.) Use of intra-operative fluoroscopy for localization of correct surgical levels and for final confirmation of the position of the L4-5 intervertebral cage and for final confirmation of the position of the L4-S1 posterolateral instrumentation. 10.) Use of intra-operative neuromonitoring including EMG's and SSEPS. Surgeon: Wu Bailey MD Irrigation Manager: NOAM Cisneros Anesthesia Provider: Kalani Darnell CRNA Anesthesia Type: General Estimated Blood Loss (mL): 400 Fluids: See anesthesia record Pathology: None. Indications: Ms. Rocha is a 68-year-old female, previous patient of Dr. Simpson, who underwent an L4-5 foraminotomy on 08/22/2017. She has had persistent symptoms, including left leg pain and back pain since her surgical procedure. She had imaging studies, an MRI scan and x-ray images of the lumbar spine that demonstrated multilevel lumbar degenerative disc disease, focally advanced at the L4-5 level, and multilevel lumbar spondylosis with moderate facet arthropathy and hypertroph y, and widening of the facet joints with fluid in the facet joints at L2-3 and L3-4, and more advanced facet arthropathy and hypertrophy at L4-5 and L5-S1. Both the x-rays and the MRI scan demonstrated mild retrolisthesis of L2 and L3, retrolisthesis of L4 and L5, and anterolisthesis at L5 and S1. The MRI scan demonstrated mild to moderate central canal stenosis at L3-4, lateral recessed stenosis at L4-5 on the left secondary to prominent bone spur along the inferior endplate of L4, disc protrusion and hypertrophy of the superior articulating facet of L5. Ms. Rocha's symptoms had failed to improve with expectant management and non- operative threrapies. We had discussed proceeding with a L4-S1 lumbar fusion procedure. She wished to proceed with that surgical procedure. Findings: 1.) Left L4-5 pars defect. 2.) Severe left L4-5 lateral recess stenosis. 3.) Left L4-5 partially calcified herniated nucleus propulsis. Complications: 2mm linear lateral L5 nerve root durotomy with intact arachnoid and no evidence of CSF leak sewn up primarily with 6-0 prolene suture. Operative Summary: Ms. Rocha was met in the pre-operative area. I reviewed her surgical history and physical in her chart from her recent 04/19/2018 visit for that purpose. I reviewed that procedure to be performed with her and her family members and we were in agreement on the procedure to be performed and this matched what was written on the patient's consent form. Any questions that Ms. Rocha or family members had were answered before she was brought back to the operating room suite. Ms. Rocha was brought back to the operating suite and put under general anesthesia and intubated by the anesthesia staff. She had a Sotelo catheter placed into her bladder. She had pneumatic compression hose placed on her lower legs bilaterally. Ms. Jones was carefully rolled over onto the Jovanny surgical table with her arms gently positioned upwards with her shoulders abducted less then 90 degrees. Her arms were well padded with foam padding on top of the padding of the surgical arm board. Her chest and axilla was checked bilaterally to make sure that there were no pressure points over the region of the brachial plexus bilaterally. Her breasts were checked to be beneath the chest pad of the Jovanny table with no pressure points over the nipples. All bony prominences were well padded. Her Sotelo catheter was checked to be free from kinks. Her pneumatic compression hose was attached to a pneumatic compression device. The C-arm fluoroscopy unit was used to help localize the intended skin incision. The skin incision was marked with a skin marker incorporating her scar from her previous surgery into this incision. Crosshatches were made with the skin marker as well. Ms. Rocha was prepped and draped in the usual and standard fashion. She was given Ancef and Vancomycin IV for klauida-operative antibiosis. She was given 10 mg of Decadron IV. A surgical time out was performed, identifying the correct patient, the correct procedure, and the correct equipment being available for the procedure. The intended skin incision was injected subcutaneously with1/4 marcain with 1:200,000 epinepherine. The skin incision was incised with a 10 blade scalpel. Dermal and superficial subcutaneous bleeding points were coagulated with bipolar cautery. The dissection was continued through the copious subcutaneous fatty tissue to the lumbosacral fascia. The fascia was incised with Bovie cautery and subperiosteal dissection was performed down the spinous process just above the scar tissue from her previous procedure, believed to be the L3 spinous process. A Gemma was placed over the level of where the pedicles of L4 were believed to be and this was confirmed with lateral fluoroscopy. Continued periosteal dissection was performed exposing the L4 lamina, the L5 lamina, and the upper part of the sacrum bilaterally as well as the L4-5 and L5- S1 facet joints bilaterally and the L4, L5 transverse processes and the sacral alar bilaterally. Care was taken not to enter into the previous left L4-5 hemilaminotomy/medial facetectomy decompression site. Cerebellar and Gelpi retractors were placed for self retaining retraction. Soft tissue was cleaned off of the exposed spine using large straight curettes and a large Leksell rongeur. Extensive decortication was then performed of the L4 and L5 transverse processes and lateral aspect of the L4-5 facet joint and the lateral and dorsal aspect of the L5-S1 facet joint after first removing the posterior aspect of this very hypertrophied facet joint bilaterally with the large Leksell rongeur. The sacral alar and the upper part of the sacrum was decorticated bilaterally. The decortication was performed with the high speed [employer] electric drill with a matchstick bit. The Concrete neuronavigation reference arc was securely attached to the L3 spinous process and a spin was performed with the [employer]ies 3D fluoroscopy unit. The Styker neuronavigation pedicle probe was then used to cannulate the L4, L5, and S1 pedicles bilaterally. A Jamshedi needle was placed into the L4 pedicle on the left and 20 cc of vertebral body bone marrow was obtained and saved to be used to saturate the Vitoss synthetic bone product with. The internal aspect of the pedicles were palpated with a small ball tip instrument. The pedicles were tapped with the appropriate Concrete Josue 3 pedicle tap. The internal aspect of the pedicles were again palpated with the small ball tip instrument. The pedicle screws were placed. 6.5 x 60 mm Bing Josue 3 pedicle screws were placed into the L4 pedicles bilaterally, a 6.5 x 50 mm pedicle screw was placed into the L5 pedicle on the left and a 6.5 x 60 mm pedicle screw was placed into the L5 pedicle on the right, 6.5 x 45 mm pedicle screws were placed into the S1 pedicles bilaterally. Al pedicle screws obtained good purchase in the pedicle and vertebral body bone. The pedicle screws were interrogated with triggered EMG's and all demonstrated sufficiently high impediance indicating that they were not in close proximity to nerve structures. Another spin was performed with the [employer] #D fluoroscopy unit confirming that the pedicle screws were all within the confines of the pedicles bilaterally and that they were all bicortical or nearly bi- cortical in purchase as intended. The L4 pedicle screws were noted to be too long. The L4 pedicle screws were removed and replaced with 6.5 x 50 mm pedicle screws and their final position was confirmed with another spin with the fluoroscopy unit. Attention was turned to the redo decompression at L4-5 on the left. The hemilaminotomy was extended rostrally and the medial facetectomy was extended laterally on the left using the high speed drill with the matchstick bit. Additional bone was removed with small kerrison punches with the bone being kept to be used for interbody and posterolateral fusion product (autograft). Thickened yellow ligament was removed in the hemicanal and lateral recess and scar tiissue was carefully dissected from the dura exposing the lateral half of the thecal sac and the takeoff of the left L5 nerve root. There was a tiny, approximately 2mm linear rent noticed in the lateral aspect of the proximal nerve root. This was inspected and the arachnoid was intact and there was no leak of CSF. This rent was sewn up with 6-0 prolene suture. The soft tissue adjancent to the take off of the L5 nerve root was dissected carefully with a [place] 4. This identified this disc space and a prominent semicalcified herniated nucleus propulsis was encountered The annulus was incised with a 15 blade scalpel and disc material was removed with a pituitary rongeur. Additional disc material from underneath the transversing left L5 nerve root was removed with downbiting curettes with the fragments removed with a pituitary rongeur. The L4-5 disc space was prepared for the interbody fusion using the K2 disc space ginette in 1 mm increments from a size 7 shaver to a size 9 shaver. The loosened disc material and cartilaginous endplates was removed with a pituitary ronqeur. The large downbiting Zac curette was used to loosen disc material laterally in the disc space with the fragments being removed with the pituitary ronqeur. The large Zac curette was used to decorticate the nL4 and L5 endplates in preparation for the interbody fusion at this level. The interspace was irrigated with bacitracin irrigant. Several cc's of Bing BIO DBM Putty Plus with cancellous (allograft) was placed into the interspace and moved anteriorly with a bone tamp. The appropriate size lumbar interbody cage was selected. A 10 mm x 1 mm x [address] titanium lumbar interbody cage was selected and filled with autrograft and inserted into the L4-5 interspace with the orthopedic technician. The cage was gently countersunk and rotated with a tamp and mallet. The cage obtained good purchase between the L4 and L5 endplates. The final position of the cage was confirmed with lateral fluoroscopy. Attention was turned to the L5-S1 level. Inspection demonstrated no intralaminar space at this level. Pulling gently on the L5 and S1 pedicle screws as this level demonstrated minimal movement at this level. Review of the images demonstrated no significant canal, lateral recess, or neuroforaminal stenosis at this level. It was therefore decided not to sacrifice the overlapping L5 and S1 bone posteriorly to access the L5-S1 interspace for interbody fusion at this level, feeling that there was a large amount of bone available posteriorly for posterolateral fusion. Attension was turned back to the instrumentation portion of the procedure. Two appropriate length prebent 6.0 mm diameter Bing Josue 3 titanium rods were selected and placed in the tulips of the L4, L5, and S1 pedicle screws bilaterally. Set screws were placed in over the rods in the tulips of the pedicle screws bilaterally. The set screws were tightened down hand tight and then to their final tightness using the torque/countertorque device. The surgical site was irrigated with hydrogen peroxide solution. The surgical site was pulse lavaged with 3 liters of vancomycin/bacitracin/gentimycin solution. The Concrete Vitoss Bimodal synthetc bone product, 20cc (allograft) soaked in 20cc of vertebral bone marrow was split and placed lateral to the hardware from the L4 transverse process to the sacral alar and over the upper part of the sacrum bilaterally. The remaining autograft mixed with 60cc of cancellous bone chips (allograft) was split with this being placed over the Vitoss synthetic bone product from the L4 transverse process to over the sacral alar and the upper part of the sacrum bilaterally, The remaining aspect of the Bing BIO DBM Putty Plus with cancellous (allograft) was placed over the bone chips from the L4 transverse process to over the sacral alar and the upper part of the sacrum bilaterally to provide extra bone product for fusion but to also hold the bone chips in place. Any bone in canal or lateral recess was removed. The canal and lateral recess was irrigated with a smal amount of bacitracin irrigation which was then removed with suction. A small amount of Floseal hemostatic agent was placed in the lateral recess. The lateral recess was then filled with Tisseal tissue sealant covering over the durotomy repair site. Floseal hemostatic agent was placed over all exposed dural elements. A piece of Gelfoam was placed over the canal. A medium Hemovac drain was placed in the surgical site. The closure portion of the procedure was begun. The fascia was closed tightly with #1 Vicryl suture in an interrupted fashion. The surgical site was again irrigated with bacitracin irrigation. The deep subcutaneous tissue and fascia was re-approximated with 2- 0 Vicryl suture in an interrupted fashion. A more superficial layer of the subcutaneous tissue was approximated with another layer of 2-0 Vicryl suture in an interrupted fashion. The dermis and superficial subcutaneous tissue was re- approximated with 3-0 Vicryl suture in an inverted interrupted fashion. The Ioban drape was pulled back from the skin edges. The final layer of closure was with surgical stainless steel natalie. The incision was cleansed with a bacitracin soaked sponge and dried with a sterile dry sponge. The incision was dressed with a Mepilex dressing. The surgical drain was secured with suture. The drain site was dressed. All surgical drapes were removed. Ms. Rocha was rolled over onto the PACU stretcher. She was awoken and extubated by the anesthesia staff. She was taken to the recovery room in stable condition. All surgical counts were reported as correct by the scrub and circulating personell. A Physician's Irrigation Manager, Ms. Juliette Gold PA-C, assisted with the procedure including the exposure and closure portions of the procedure. She provided irrigation and suctioning throughout the procedure. She skillfully and carefully retracted the nerve structures for the discectomy and intervertebral cage placement portions of the procedure.
--- NOTE | 2018-05-13 09:32 | PT AM DAY ---
Diagnosis : Lumbar Fusion AM - Physical Therapy S: The patient states she is doing very well and she is just waiting to do the stairs with therapy in order to be cleared to return back home. She states that her pain is under better control and she feels that she is ready to go back home. O: Treatment today consisted of the patient performing a sit to stand transfer with stand by assist x1 for safety. The patient did have the back brace in place. The patient then ambulated 50 feet to the stairwell where she was able to perform 4 stairs with hand rail on the right side with stand by assist x1 for safety. The patient then ambulated an additional 100 feet back to her room with stand by assist x1 for safety. Once back in her room the patient was able to transfer back to her chair independently. A: The patient has met goals for therapy and is cleared by therapy to return back home. P: Patient will be discharged from therapy. MTDD
== END 2018-05-11 10:55 | disposition home or self-care (01) | DRG 460 ==
LOC: MED/SURG 05:39 → OPS 05:49 → MED/SURG 16:03
PROVIDERS: ADMIT Neurological Surgery; ATTEND Neurological Surgery